=== PATIENT | female | born 2000 | race Caucasian/White ===

== ENCOUNTER 2022-01-14 19:03 | Emergency (ER) | payer SELFPAY ==
--- NOTE | ~2022-01-14 | XR_ITS ---
EXAMINATION: XR foot RT min 3V, XR foot LT min 3V DATE: 01/14/2022 20:08 INDICATION: Pain at the arches of the bilateral feet TECHNIQUE: 1. Dorsoplantar, two oblique and lateral views of the left foot were obtained. 2. Dorsoplantar, two oblique and lateral views of the right foot were obtained. COMPARISON: None. FINDINGS: Normal alignment at both feet. No fractures. Joint spaces are normal throughout both feet. No erosion s or periosteal reaction. Soft tissues are unremarkable. IMPRESSION: 1. Negative bilateral foot radiographs. Reviewed, dictated and finalized at location A. IMPRESSION: 1. Negative bilateral foot radiographs.
[2022-01-14 19:15] VITALS: BP 122/76; PULSE 101; RESP 18; TEMP 36.6; O2SAT 100
--- NOTE | 2022-01-14 19:17 | ED.LOWEXIN ---
HPI - Extremity Injury (Lower) General Chief Complaint: Extremity Problem,Nontraumatic Stated Complaint: pain in feet Time Seen by Provider: 01/14/22 19:17 Source: patient Mode of arrival: wheelchair History of Present Illness HPI Narrative: 21-year-old female with Asthma presents to the ER with bilateral foot pain. The patient has been standing for prolonged periods of time washing dishes. No history of trauma. bilateral breast cutaneous scars Onset (ago): week(s) ( For past 2 weeks) Relieving factors: immobilization Exacerbating factors: weight bearing Other symptoms: none Related Data Allergies Allergy/AdvReac Type Severity Reaction Status Date / Time No Known Allergies Allergy Unverified 08/09/18 19:40 Review of Systems Review of Systems: All systems reviewed & are unremarkable except as noted in HPI and below Constitutional: Constitutional: Reports as per HPI and Reports no additional constitutional complaints Eyes: Eyes: Reports as per HPI and Reports no additional eye complaints ENT: Reports system reviewed and no additional complaints, except as documented and Reports as per HPI Cardiovascular: Cardiovascular: Reports as per HPI and Reports no additional cardiovascular complaints Respiratory: Respiratory: Reports as per HPI, Reports no additional respiratory complaints, Reports cough and Reports wheezing Gastrointestinal: Gastrointestinal: Reports as per HPI and Reports no additional gastrointestinal complaints Genitourinary: Genitourinary: Reports no additional female genitourinary complaints and Reports as per HPI Musculoskeletal: Musculoskeletal: Reports no additional musculoskeletal complaints and Reports as per HPI Comments: bilateral foot pain Integumentary/Breasts: Skin/Breast: Reports system reviewed and no additional complaints, except as docu Neurologic: Reports system reviewed and no additional complaints, except as documented and Reports as per HPI Psychiatric: Psychiatric: Reports no additional psychiatric complaints and Reports as per HPI Endocrine: Endocrine: Reports no additional endocrine complaints and Reports as per HPI Hematologic/Lymphatic: Hematologic/Lymphatic: Reports no additional hematologic/lymphatic complaints and Reports as per HPI Allergic/Immunologic: Allergic/Immunologic: Reports no additional allergic/immunologic complaints and Reports as per HPI Exam Const: General: healthy appearing and no acute distress Nutritional Appearance: well nourished Orientation/consciousness: patient oriented x3 Limitations: no limitations HENMT: Head: normal to inspection Ears: external ears normal General nose exam: Normal external nose present Face and sinus: normal facial exam Mouth: Yes Normal oral and palatal mucosa present Throat: posterior oropharynx normal Eyes: Conjunctivae: conjunctivae normal Pupils: Equal, round and reactive pupils present EOM: EOMs intact bilaterally Direct Ophthalmoscopy: no photophobia Neck: Neck: normal visual inspection, no lymphadenopathy and no meningeal signs Chest: Chest palpation & inspection: normal inspection of the chest Resp: Effort & Inspection: normal respiratory effort Auscultation: rhonchi Cardio: Rate: regular rate Rhythm: regular rhythm GI: GI Palp: Yes Soft to palpation : General: Yes bladder normal to palpation and Yes no CVA tenderness Back/Spine/Pelvis: Back: no CVA tenderness Skin: General skin exam: normal color Rashes: no rashes Wounds: no wounds Other: the skin on the press has 0.5-1 cm healed scars. She has intermittent abscesses which drained pus subsequently form scars Neuro: General: patient oriented x3 Cranial nerves: Yes Nystagmus not present Speech: normal speech Gait exam (Neuro): Normal gait present Extrem: General: normal to inspection Psych: Mental Status: mental status grossly normal Affect: normal affect Attitude: cooperative Course Course Emergency Course: foot pain joseas
[2022-01-14 19:46] LABS: Pregnancy On Board Control Positive; Urine Pregnancy Test Negative
[2022-01-14 20:40] VITALS: BP 124/70; PULSE 91; RESP 18; O2SAT 99
== END 2022-01-14 20:42 | disposition home or self-care (01) ==
PROVIDERS: Emergency Provider Internal Medicine Critical Care Medicine
DX: M79.672 Pain in left foot (principal); M79.671 Pain in right foot; L02.91 Cutaneous abscess, unspecified
CPT/HCPCS: 73630; 81025; 99284

== ENCOUNTER 2022-11-17 19:35 | Emergency (ER) | payer SELFPAY ==
[2022-11-17 19:39] VITALS: BP 140/80; PULSE 88; RESP 20; TEMP 36.7; O2SAT 100
--- NOTE | 2022-11-17 19:48 | ED.GENADULT ---
HPI - General Adult General Chief complaint: Unspecified Stated complaint: L Rib pain History of Present Illness HPI narrative: The patient is a 22-year-old with history of asthma and seasonal allergies. She smokes marijuana but does not use nicotine. This evening, at approximately 6:00 p.m., she had left posterior mid back pain, with tenderness to touch in that area. No falls or twisting or lifting of heavy objects. Event took place at work. Worse pain by palpation of that area. The pain is intermittent, and is not radiating elsewhere, currently 1/10 (minimal). She is having occasional shortness of breath and she has not taken her inhaler with her to come to the emergency room. No chest pain. No abdominal pain. No nausea or vomiting. No fevers or chills or diaphoresis. No URI or UTI symptoms. No hematuria. No flank pain. No history of kidney stones. The patient also has a small 1 cm lesion on her left breast that is tender to touch, for the last several days. No fevers. No drainage from that area. Related Data Allergies Allergy/AdvReac Type Severity Reaction Status Date / Time No Known Allergies Allergy Unverified 08/09/18 19:40 Review of Systems Review of Systems: All systems reviewed & are unremarkable except as noted in HPI and below Constitutional: Constitutional: Denies chills, Denies excessive sweating, Denies fatigue, Denies fever(s), Denies headache(s) and Denies weakness Eyes: Eyes: Denies change in vision and Denies photophobia ENT: Denies dysphagia, Denies dizziness, Denies headache(s), Denies lip swelling, Denies nasal congestion, Denies sore throat and Denies tongue swelling Cardiovascular: Cardiovascular: Denies chest pain, Denies syncope, Denies rapid heart rate and Denies dyspnea Respiratory: Respiratory: Denies cough, Reports dyspnea and Denies wheezing Gastrointestinal: Gastrointestinal: Denies abdominal pain, Denies constipation, Denies dysphagia, Denies diarrhea, Denies nausea and Denies vomiting Genitourinary: Genitourinary: Denies hematuria, Denies urinary frequency, Denies dysuria and Denies urinary urgency Musculoskeletal: Musculoskeletal: Reports back pain, Denies myalgias, Denies arthralgias, Denies joint swelling and Denies numbness Integumentary/Breasts: Skin/Breast: Denies pruritus, Reports erythema and Reports rash ( At left breast) Neurologic: Denies confusion, Denies dizziness, Denies syncope, Denies headache(s), Denies focal weakness, Denies numbness and Denies weakness Psychiatric: Psychiatric: Denies anxiety and Denies confusion Endocrine: Endocrine: Denies excessive sweating and Denies fatigue Hematologic/Lymphatic: Hematologic/Lymphatic: Denies easy bleeding and Denies easy bruising Allergic/Immunologic: Allergic/Immunologic: Denies lip swelling, Denies tongue swelling and Denies wheezing Exam Const: General: healthy appearing, no acute distress, alert and well nourished Nutritional Appearance: well nourished Orientation/consciousness: patient oriented x3 Limitations: no limitations HENMT: Head: normal to inspection Ears: external ears normal Face/Nose/Sinus: normal facial exam Face and sinus: normal facial exam Mouth: Yes moist mucous membranes Throat: posterior oropharynx normal Eyes: Conjunctivae: conjunctivae normal Pupils: Equal, round and reactive pupils present EOM: EOMs intact bilaterally Neck: Neck: normal visual inspection and no meningeal signs Chest: Chest palpation & inspection: normal inspection of the chest and no tenderness Resp: Effort & Inspection: normal respiratory effort and not labored Auscultation: clear to auscultation bilaterally, no crackles, no rhonchi and wheezes scattered wheezes (very occasional wheezes.) Cardio: Rate: regular rate Rhythm: regular rhythm Heart sounds: no murmurs GI: Inspection: non-distended GI Palp: Yes Soft to palpation, No Tenderness to palpation present (GI), No Guarding due to palpation present (GI) an
[2022-11-17 20:21] LABS: Appearance Urine Clear (Clear); Bilirubin Urine Negative (Negative); Blood Urine 2+ (Negative); Color Urine Light Yellow (Yellow); Glucose Urine UA Negative (Negative); Ketones Urine Negative (Negative); Leukocyte Esterase Ur Negative LEU/UL (Negative); Nitrate Urine Negative (Negative); Protein Urine Negative (Negative); Specific Grav Ur >= 1.030 (1.010-1.020); Urobilinogen Urine 0.2 mg/dL (0.2-1.0)
[2022-11-17 20:25] LABS: Pregnancy On Board Control Positive; Urine Pregnancy Test Negative
[2022-11-17] MEDS: ACETAMINOPHEN 500 MG TABLET 1000 MG PO (20:25)
[2022-11-17] MEDS: IBUPROFEN 400 MG TABLET 800 MG PO (20:25)
[2022-11-17 20:26] LABS: Add Urine Microscopic? YES; Bacteria Urine 1+ /hpf; Mucus Urine Few /lpf; Squamous Epithelial Cell Urine Few /hpf (Few); WBC Urine None seen /hpf (0-3)
[2022-11-17] MEDS: CYCLOBENZAPRINE HCL 10 MG TABLET PO (20:26)
[2022-11-17] MEDS: IPRATROPIUM 0.5 MG/ALBUTEROL SULFATE 2.5 MG AMPUL.NEB 3 ML INHALATION (20:30)
[2022-11-17] MEDS: SULFAMETHOXAZOLE/TRIMETHOPRIM 800/160 MG DS TABLET 1 TAB PO (20:39)
[2022-11-17 21:09] VITALS: BP 121/84; PULSE 88; RESP 20; TEMP 36.7; O2SAT 100
== END 2022-11-17 21:11 | disposition home or self-care (01) ==
LOC: CHSED 20:58
PROVIDERS: Emergency Provider Emergency Medicine
DX: S29.012A Strain of muscle and tendon of back wall of thorax, initial encounter (principal); J45.909 Unspecified asthma, uncomplicated; L03.312 Cellulitis of back [any part except buttock and flank]; X58.XXXA Exposure to other specified factors, initial encounter
CPT/HCPCS: 81001; 81025; 99283; A9270

== ENCOUNTER 2023-01-05 22:55 | Emergency (ER) | payer SELFPAY ==
--- NOTE | 2023-01-05 22:57 | ED.LOWEXIN ---
HPI - Extremity Injury (Lower) General Chief Complaint: Extremity Injury, Lower Stated Complaint: R foot pain Time Seen by Provider: 01/05/23 22:57 Source: patient Mode of arrival: ambulatory Limitations: no limitations History of Present Illness HPI Narrative: 22-year-old female presents to the ER a 2 day history of -- right foot /sole pain which has been increasing progressively. She is unable to bear weight. No history of trauma she has a prior history of bilateral foot pain. She stands for prolonged periods of time at her job. Onset (ago): day(s) (for last 2 days.) Injury: Right: foot Related Data Home Medications Medication Instructions Recorded Confirmed No Home Medications 01/05/23 01/05/23 Allergies Allergy/AdvReac Type Severity Reaction Status Date / Time No Known Allergies Allergy Unverified 01/05/23 23:37 Review of Systems Review of Systems: All systems reviewed & are unremarkable except as noted in HPI and below Constitutional: Constitutional: Reports as per HPI and Reports no additional constitutional complaints Eyes: Eyes: Reports as per HPI and Reports no additional eye complaints ENT: Reports system reviewed and no additional complaints, except as documented and Reports as per HPI Cardiovascular: Cardiovascular: Reports as per HPI and Reports no additional cardiovascular complaints Respiratory: Respiratory: Reports as per HPI and Reports no additional respiratory complaints Gastrointestinal: Gastrointestinal: Reports as per HPI and Reports no additional gastrointestinal complaints Genitourinary: Genitourinary: Reports no additional female genitourinary complaints Musculoskeletal: Comments: Pain on the sole of her right foot. Integumentary/Breasts: Skin/Breast: Reports system reviewed and no additional complaints, except as docu and Reports as per HPI Neurologic: Reports system reviewed and no additional complaints, except as documented and Reports as per HPI Psychiatric: Psychiatric: Reports no additional psychiatric complaints and Reports as per HPI Endocrine: Endocrine: Reports no additional endocrine complaints and Reports as per HPI Hematologic/Lymphatic: Hematologic/Lymphatic: Reports no additional hematologic/lymphatic complaints and Reports as per HPI Allergic/Immunologic: Allergic/Immunologic: Reports no additional allergic/immunologic complaints and Reports as per HPI Exam Const: General: no acute distress Orientation/consciousness: patient oriented x3 Limitations: no limitations HENMT: Head: normal to inspection Ears: external ears normal Face/Nose/Sinus: Normal external nose present Face and sinus: normal facial exam Mouth: Yes Normal oral and palatal mucosa present Throat: posterior oropharynx normal Eyes: Conjunctivae: conjunctivae normal Pupils: Equal, round and reactive pupils present EOM: EOMs intact bilaterally Direct Ophthalmoscopy: no photophobia Neck: Neck: normal visual inspection and no lymphadenopathy Chest: Chest palpation & inspection: normal inspection of the chest Resp: Effort & Inspection: normal respiratory effort Auscultation: clear to auscultation bilaterally Cardio: Rate: regular rate Rhythm: regular rhythm GI: GI Palp: Yes Soft to palpation Auscultation: normal bowel sounds Back/Spine/Pelvis: Back: no CVA tenderness Skin: General skin exam: normal color Rashes: no rashes Wounds: no wounds Neuro: General: patient oriented x3, moves all extremities, no meningeal signs, no focal motor deficits and CN's II-XI intact bilaterally Speech: normal speech Extrem: General: normal to inspection Other: Right foot has tenderness over the plantar fascia. Psych: Mental Status: mental status grossly normal Affect: normal affect Attitude: cooperative Course Course Emergency Course: Right foot pain-- will get an x-ray to rule out a fracture /stress fracture chest x-ray did not show any fractures or dislocation.
[2023-01-05 23:04] VITALS: BP 120/74; PULSE 102; RESP 20; TEMP 36.9; O2SAT 98
--- NOTE | 2023-01-05 23:16 | PC.NURSE ---
Urine specimen taken to lab and given to bottle label inspector at this time.
[2023-01-05 23:19] LABS: Pregnancy On Board Control Positive; Urine Pregnancy Test Negative
== END 2023-01-05 23:57 | disposition home or self-care (01) ==
PROVIDERS: Emergency Provider Internal Medicine Critical Care Medicine
DX: M72.2 Plantar fascial fibromatosis (principal)
CPT/HCPCS: 73630; 81025; 99283

== ENCOUNTER 2023-03-30 12:27 | Emergency (ER) | payer SELFPAY ==
--- NOTE | ~2023-03-30 | XR_ITS ---
XR chest 1V portable DATE: 03/30/2023 13:34 INDICATION: Shortness of breath TECHNIQUE: Portable upright AP chest on 03/30/2023 1334 hours COMPARISON: None FINDINGS: Normal heart size. No hilar or mediastinal enlargement. No pulmonary infiltrate or consolidation, pleural effusion or pulmonary vascular congestion or pneumo thorax is detected. IMPRESSION: No active cardiopulmonary disease Reviewed, dictated and finalized at location B.
[2023-03-30 12:36] VITALS: BP 150/101; PULSE 90; RESP 20; TEMP 36.7; O2SAT 97
--- NOTE | 2023-03-30 12:39 | ED.SOB ---
HPI - SOB/Dyspnea General Chief Complaint: Shortness of Breath/Dyspnea Stated Complaint: shortness of breath and cough Time Seen by Provider: 03/30/23 12:39 Source: patient Mode of arrival: ambulatory Limitations: no limitations History of Present Illness HPI Narrative: 22-year-old female with asthma presents to the ER with a 2 day history of -- nonproductive cough -- shortness of breath with wheezing no fever or chills. No upper respiratory symptoms. Patient has been using Primatene mist without significant improvement. MD elicited complaint: shortness of breath, cough and asthma attack Pertinent past history: asthma Onset (ago): day(s) ( Symptoms started 2 days ago.) Severity: severe Exacerbating factors: exertion and coughing Relieving factors: nothing Known history of: asthma Associated symptoms: denies other symptoms Related Data Home oxygen amount: none Home Medications Medication Instructions Recorded Confirmed epinephrine 0.125 mg/actuation 1 puff inhalation Q4H PRN 03/30/23 03/30/23 aerosol inhaler (Primatene Mist) Shortness Of Breath Or Wheezing Allergies Allergy/AdvReac Type Severity Reaction Status Date / Time No Known Allergies Allergy Unverified 03/30/23 12:51 Review of Systems Review of Systems: All systems reviewed & are unremarkable except as noted in HPI and below Constitutional: Constitutional: Reports as per HPI and Reports no additional constitutional complaints Eyes: Eyes: Reports as per HPI and Reports no additional eye complaints ENT: Reports system reviewed and no additional complaints, except as documented and Reports as per HPI Cardiovascular: Cardiovascular: Reports as per HPI and Reports no additional cardiovascular complaints Respiratory: Respiratory: Reports as per HPI, Reports cough, Reports dyspnea and Reports wheezing Gastrointestinal: Gastrointestinal: Reports as per HPI and Reports no additional gastrointestinal complaints Genitourinary: Genitourinary: Reports no additional female genitourinary complaints and Reports as per HPI Musculoskeletal: Musculoskeletal: Reports no additional musculoskeletal complaints and Reports as per HPI Integumentary/Breasts: Skin/Breast: Reports system reviewed and no additional complaints, except as docu and Reports as per HPI Neurologic: Reports system reviewed and no additional complaints, except as documented and Reports as per HPI Psychiatric: Psychiatric: Reports no additional psychiatric complaints and Reports as per HPI Endocrine: Endocrine: Reports no additional endocrine complaints and Reports as per HPI Hematologic/Lymphatic: Hematologic/Lymphatic: Reports no additional hematologic/lymphatic complaints and Reports as per HPI Allergic/Immunologic: Allergic/Immunologic: Reports no additional allergic/immunologic complaints and Reports as per HPI Exam Const: General: ill appearing Nutritional Appearance: obese Orientation/consciousness: patient oriented x3 Limitations: no limitations HENMT: Head: normal to inspection Ears: external ears normal Face/Nose/Sinus: Normal external nose present Face and sinus: normal facial exam Mouth: Yes Normal oral and palatal mucosa present Throat: posterior oropharynx normal Eyes: Conjunctivae: conjunctivae normal Pupils: Equal, round and reactive pupils present EOM: EOMs intact bilaterally Direct Ophthalmoscopy: no photophobia Neck: Neck: normal visual inspection, no lymphadenopathy and no meningeal signs Chest: Chest palpation & inspection: normal inspection of the chest Resp: Effort & Inspection: labored Auscultation: rhonchi and wheezes Cardio: Rate: regular rate Rhythm: regular rhythm GI: GI Palp: Yes Soft to palpation Auscultation: normal bowel sounds : General: Yes no CVA tenderness Back/Spine/Pelvis: Back: no CVA tenderness Skin: General skin exam: normal color Rashes: no rashes Wounds: no wounds Neuro: General: patient oriented x3, moves all extremi
[2023-03-30 12:46] VITALS: O2SAT 97
[2023-03-30 13:00] VITALS: PULSE 82; RESP 16; O2SAT 96
[2023-03-30] MEDS: IPRATROPIUM 0.5 MG/ALBUTEROL SULFATE 2.5 MG AMPUL.NEB 3 ML INHALATION (13:02)
[2023-03-30 13:09] VITALS: PULSE 86; RESP 16; O2SAT 100
[2023-03-30] MEDS: methylPREDNISolone SOD SUCC 125 MG VIAL IM (13:25)
[2023-03-30 14:31] VITALS: BP 127/86; PULSE 87; RESP 18; TEMP 36.3; O2SAT 96
--- NOTE | 2023-03-30 14:49 | PC.NURSE ---
On 03/30/23, the student, [ANGEL COMBS ], provided care and completed [facility] documentation on this patient. I have reviewed the student's documentation and agree with the findings.
== END 2023-03-30 14:50 | disposition home or self-care (01) ==
PROVIDERS: Emergency Provider Internal Medicine Critical Care Medicine
DX: J45.51 Severe persistent asthma with (acute) exacerbation (principal)
CPT/HCPCS: 71045; 94640; 96372; 99283; J2930

== ENCOUNTER 2023-04-03 01:52 | Emergency (ER) | payer SELFPAY ==
--- NOTE | ~2023-04-03 | XR_ITS ---
EXAMINATION: XR chest 1V portable 04/03/2023 02:19 INDICATION: Dyspnea. History of asthma. PROCEDURE: AP portable chest COMPARISON: 03/30/2023 FINDINGS: The lungs are clear. The cardiomediastinal silhouette is within normal limits. There are no pleural effusions. There is no pneumothorax suspected. IMPRESSION: 1: NO ACUTE CARDIOPULMONARY DISEASE. Reviewed, dictated and finalized at location A.
[2023-04-03 01:54] VITALS: BP 117/95; PULSE 137; RESP 24; TEMP 36.8; O2SAT 96
--- NOTE | 2023-04-03 02:16 | ED.GENADULT ---
HPI - General Adult General Chief complaint: Asthma Stated complaint: Asthma Time Seen by Provider: 04/03/23 02:08 History of Present Illness HPI narrative: Patient [id number] female who presents the emergency department with chief complaint of asthma exacerbation. The patient reports that she was seen on the and treated for asthma the patient reports that she was recently seen and was started on a nebulizer and inhaler patient reports that she did not take the prednisone as she did not feel as though it was working. Related Data Home Medications Medication Instructions Recorded Confirmed epinephrine 0.125 mg/actuation 1 puff inhalation Q4H PRN 03/30/23 03/30/23 aerosol inhaler (Primatene Mist) Shortness Of Breath Or Wheezing Allergies Allergy/AdvReac Type Severity Reaction Status Date / Time No Known Allergies Allergy Verified 04/03/23 01:57 Review of Systems Review of Systems: A 10 system review of systems was completed on the patient and is negative except for what is stated in the HPI. Nursing and ancillary documentation was reviewed. Exam Narrative: GENERAL: Well-appearing, well-nourished, and in no acute distress. HEAD: Normocephalic, atraumatic. EYES: PERRLA and EOMI. ENT: Nares clear, no rhinorrhea or epistaxis. Mucous membranes moist. NECK: Supple. CHEST: Scattered wheezes to auscultation. No respiratory distress. HEART: Regular rate and rhythm. No murmur heard. Normal peripheral pulses. ABDOMEN: Soft, nontender, nondistended, normal active bowel sounds. EXTREMITIES: Normal range of motion. No edema. SKIN: Warm, dry, no rash. NEURO: No focal deficits. Alert and oriented x3. PSYCH: Normal mood and affect. Course Vital Signs Vital signs: Vital Signs Temperature 36.8 C 04/03/23 01:54 Pulse Rate 137 H 04/03/23 01:54 Respiratory Rate 24 H 04/03/23 01:54 Blood Pressure 117/95 H 04/03/23 01:54 Pulse Oximetry 96 04/03/23 01:54 Oxygen Delivery Room Air 04/03/23 01:54 Temperature 36.8 C 04/03/23 01:54 Pulse Rate 124 H 04/03/23 02:37 Respiratory Rate 18 04/03/23 02:37 Blood Pressure 117/95 H 04/03/23 01:54 Pulse Oximetry 96 04/03/23 01:54 Oxygen Delivery Room Air 04/03/23 01:54 Medical Decision Making MDM Narrative Medical decision making narrative: Differential diagnosis includes asthma attack, pneumonia, pneumothorax Patient received nebulizer treatment in the emergency department and received steroids. The patient is feeling better at this time Vital Signs Vital Signs: Vital Signs Temperature 36.8 C 04/03/23 01:54 Pulse Rate 137 H 04/03/23 01:54 Respiratory Rate 24 H 04/03/23 01:54 Blood Pressure 117/95 H 04/03/23 01:54 Pulse Oximetry 96 04/03/23 01:54 Oxygen Delivery Room Air 04/03/23 01:54 Temperature 36.8 C 04/03/23 01:54 Pulse Rate 124 H 04/03/23 02:37 Respiratory Rate 18 04/03/23 02:37 Blood Pressure 117/95 H 04/03/23 01:54 Pulse Oximetry 96 04/03/23 01:54 Oxygen Delivery Room Air 04/03/23 01:54 Discharge Plan Discharge Clinical Impression: Asthma with acute exacerbation Patient Disposition: Home, Self-Care Condition: Stable Instructions: Antibiotic Form, Asthma (ED) Prescriptions: New albuterol sulfate 90 mcg/actuation HFA aerosol inhaler 2 puff inhalation QID PRN (Reason: shortness of breath or wheezing) Qty: 8.5 0RF prednisone 20 mg tablet 40 mg PO DAILY 5 Days Qty: 10 0RF benzonatate 200 mg capsule 200 mg PO TID PRN (Reason: cough) Qty: 21 0RF No Action Primatene Mist 0.125 mg/actuation Hfa Aerosol Inhaler 1 puff INHALATION Q4H PRN (Reason: Shortness Of Breath Or Wheezing) Rx Instructions: may repeat once after 1 minute; do not exceed 8 inhalations per 24 hrs prednisone 20 mg tablet 20 mg PO BID Qty: 10 0RF fluticasone propion-salmeterol [AirDuo RespiClick] 55-14 mcg/actuation aerosol powdr breath activated
[2023-04-03] MEDS: ALBUTEROL SULFATE NEB 2.5 MG/3 ML INH INHALATION (02:26)
[2023-04-03 02:27] VITALS: PULSE 120; RESP 18
[2023-04-03] MEDS: IPRATROPIUM BR 0.02% INH SOLN 0.5 MG/2.5 ML VIAL INHALATION (02:27)
[2023-04-03] MEDS: methylPREDNISolone SOD SUCC 125 MG VIAL IV PUSH (02:29)
[2023-04-03 02:37] VITALS: PULSE 124; RESP 18
[2023-04-03 03:33] VITALS: PULSE 108; O2SAT 98
== END 2023-04-03 03:34 | disposition home or self-care (01) ==
PROVIDERS: Emergency Provider Emergency Medicine
DX: J45.901 Unspecified asthma with (acute) exacerbation (principal)
CPT/HCPCS: 71045; 94640; 96374; 99284; J2930

== ENCOUNTER 2024-10-29 20:39 | Emergency (ER) | payer SELFPAY ==
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
--- OUTSIDE RECORDS SUMMARY | 2024-10-29 20:41 | XMS_ITS | Continuity of Care Document ---
Author Organization [facility] Address [address] [place] [phone] Phone Care Team Providers Care Neon Sign Worker Name Role Phone Unavailable Unavailable Unavailable Allergies, Adverse Reactions, Alerts Substance Reaction Status Criticality No Known Allergies Active No Inform ation Medications Medication Instructions Dosage Effective Dates (start - stop) Status Comments ADVAIR DISKUS (unknown strength) Not Available - Active SINGULAIR (unknown strength) Not Available - Active albuterol sulfate HFA 90 mcg/actuation aerosol inhaler - Active Procedures Procedure Date Comprehensive Eye Exam,New 4 Advance Directives Directive Yes / No Effective Date File Name No Information Encounters Encounter Description Practice Location Reason(s) For Visit Diagnoses Date Provider Providers Copied on Encounter [facility], [facility] [place], [place], [id number], [place] tel:[phone] Center [facility] decreased vision (chief complaint) Hyperopia No Information Family History Family Member Type Diagnosis Age At Onset No Information Payers Payer name Insurance type Covered republican ID Authoriza tion(s) No Information Social History Type Description Quantity Date Captured Comments Alcohol Use Details No Caffeine Use Details Unknown Tobacco Use Status No Information Smoking Status No Information Sex Female Chief Complaint And Reason For Visit From encounter dated '01/14/2014 10:00'. decreased vision (chief complaint) Reason For Referral Reason For Referral No Information History Of Present Illness Encounter Date Complaint History Of Prese nt Illness No Information Functional Status Date Functional Assessmen t No Information Instructions Date Instruction Additional Infor mation - Discussed diagnosi s in detail with patient. Discussed treatment options with patient. New glasses Rx was not given today. Will continue to observe condition and or symptoms. Call if VA worsens. Please perform stereo testing and color testing at next exam. Related to Hyperopia - Return in 1 year w tomer Mistry for Complete Exam. Related to Hyperopia Assessments Type Assessment Date assessment Hyperopia Patient Care Teams Name Effective Dates (start - stop) Status Members No Information
[2024-10-29 20:51] VITALS: BP 138/78; PULSE 80; RESP 20; TEMP 36.3; O2SAT 98
[2024-10-29 21:43] VITALS: O2SAT 97
[2024-10-29 21:46] VITALS: BP 108/93; PULSE 88; RESP 15; O2SAT 98
--- NOTE | 2024-10-29 21:48 | ECG_ITS ---
Test Date: 2024-10-29 22:21:23 Measurements Intervals [place] Rate: 90 P: 41 WV: 171 QRS: 48 QRSD: 88 T: 5 QT: 355 QTc: 436 Interpretive Statements SINUS RHYTHM LOW QRS VOLTAGE IN PRECORDIAL LEADS [QRS DEFLECTION < 1.0 mV IN CHEST LEADS] No previous ECG available for comparison Electronically Signed On 10-30-2024 13:32:03 CDT by Stacie Milner M.D.
[2024-10-29] MEDS: predniSONE 20 MG TABLET 40 MG PO (22:20)
--- OUTSIDE RECORDS SUMMARY | 2024-10-29 22:32 | XMS_ITS | Continuity of Care Document ---
Author Organization [facility] Address [address] [place] [phone] Phone Care Team Providers Care Dealmaker Name Role Phone Unavailable Unavailable Unavailable Allergies, [...] Date Provider Providers Copied on Encounter [facility], [facility] [place], [place], [id number], [place] tel:[phone] [facility] decreased vision (chief complaint) Hyperopia No Information Family History Family Member Type Diagnosis Age At Onset No Information Payers Payer name Insurance type Covered green party ID Authoriza tion(s) No Information Social History [...] - Return in 1 year w tomer Msitry for Complete Exam. Related to Hyperopia Assessments Type Assessment Date assessment Hyperopia Patient Care Teams Name Effective Dates (start - stop) Status Members No Information
[2024-10-29] MEDS: IPRATROPIUM 0.5 MG/ALBUTEROL SULFATE 2.5 MG AMPUL.NEB 3 ML 10 ML INHALATION (22:37)
[2024-10-29 22:47] VITALS: PULSE 80; RESP 18
[2024-10-29 23:22] VITALS: BP 107/80; PULSE 97; RESP 18; O2SAT 98
--- NOTE | 2024-10-30 01:44 | ED.SOB ---
HPI - SOB/Dyspnea General Chief Complaint: Shortness of Breath/Dyspnea Stated Complaint: Shortness of breath-Asthma Time Seen by Provider: 10/29/24 21:49 History of Present Illness HPI Narrative: Patient with history of asthma presents here with shortness of breath starting the last few days, has been using all of her albuterol inhaler and now is out. Related Data Home Medications Medication Instructions Recorded Confirmed Last Taken Type epinephrine 0.125 mg/actuation 1 puff inhalation Q4H PRN 03/30/23 03/30/23 03/30/23 History aerosol inhaler (Primatene Mist) Shortness Of Breath Or Wheezing Allergies Allergy/AdvReac Type Severity Reaction Status Date / Time No Known Allergies Allergy Verified 10/29/24 21:48 Review of Systems Review of Systems: All systems reviewed & are unremarkable except as noted in HPI and below Exam Narrative: EXAMINATION OF ORGAN SYSTEMS/BODY AREAS: Constitutional: Vital signs per nursing GENERAL:[No acute distress, non-toxic appearing.] HEAD: Normal with no signs of head trauma. EYES: EOMI, conjunctiva normal ENT: Hearing grossly intact LUNGS: Wheezing all lung mae with diminished breath sounds HEART: [Regular rate and rhythm] ABD: [Soft], [nontender to palpation] EXT: Normal range of motion SKIN: [No rashes or lesions.] NEURO: [Alert and oriented x 3. No gross focal sensory or strength deficits.] PSYCH: Normal affect Course Vital Signs Vital signs: Vital Signs Temperature 97.3 F L 10/29/24 20:51 Pulse Rate 80 10/29/24 20:51 Respiratory Rate 20 10/29/24 20:51 Blood Pressure 138/78 10/29/24 20:51 Pulse Oximetry 98 10/29/24 20:51 Oxygen Delivery Room Air 10/29/24 20:51 Temperature 97.3 F L 10/29/24 20:51 Pulse Rate 97 10/29/24 23:22 Respiratory Rate 18 10/29/24 23:22 Blood Pressure 107/80 10/29/24 23:22 Pulse Oximetry 98 10/29/24 23:22 Oxygen Delivery Room Air 10/29/24 21:43 MDM - SOB/Dyspnea MDM Narrative Medical decision making narrative: ED COURSE AND MEDICAL DECISION MAKINF with acute dyspnea and wheezing likely due to acute asthma exacerbation based on history and exam. Patient is hemodynamically stable. Nebulizer treatments are started and steroids given orally. Chest x-ray on my independent interpretation without any consolidations or pneumothorax. EKG on my independent interpretation shows normal sinus rhythm rate 90, normal IL, QRS, QTC, no significant ST elevations depressions signs of acute ischemia or arrhythmia. Patient monitored in the ED for a couple of hours and on reevaluation is feeling significantly better. No respiratory distress or accessory muscle use. Good air movement bilateral lungs. Prescriptions for [albuterol and steroid course] provided. She is given strict return precautions and patient is discharged in stable/improved condition. Discharge Plan Discharge Clinical Impression: Asthma exacerbation Patient Disposition: Home Condition: Stable Instructions: Asthma (ED) Additional Instructions: Please follow up with your doctor; you can always return for any further issues. Take the medications as prescribed. Patient Language: Vietnamese Prescriptions: New albuterol sulfate 90 mcg/actuation HFA aerosol inhaler 2 puff inhalation QID PRN (Reason: shortness of breath or wheezing) Qty: 8.5 0RF ipratropium-albuterol 0.5 mg-3 mg(2.5 mg base)/3 mL solution for nebulization 3 ml inhalation Q4H PRN (Reason: shortness of breath or wheezing) Qty: 180 0RF prednisone 20 mg tablet 40 mg PO DAILY 4 Days Qty: 8 0RF No Action Primatene Mist 0.125 mg/actuation Hfa Aerosol Inhaler 1 puff INHALATION Q4H PRN (Reason: Shortness Of Breath Or Wheezing) Rx Instructions: may repeat once after 1 minute; do not exceed 8 inhalations per 24 hrs prednisone 20 mg tablet 20 mg PO BID Qty: 10 0RF fluticasone propion-salmeterol [AirDuo RespiClick] 55-14 mcg/actuation aerosol powdr breath activated 1 inh inhalation Q12H Qty: 1 0RF albuterol sulfate 2.5 mg /3 mL (0.083 %) solution for nebulization 2.5 mg inhalation Q4H PRN (Reason: shortness of breath or wheezing) Qty: 180 0RF albuterol sulfate 90 mcg/actuation HFA aerosol inhaler 2 puff inhalation QID PRN (Reason: shortness of breath or wheezing) Qty: 8.5 0RF prednisone 20 mg tablet 40 mg PO DAILY 5 Days Qty: 10 0RF benzonatate 200 mg capsule 200 mg PO TID PRN (Reason: cough) Qty: 21 0RF Follow-up/Referrals: PHYSICIAN,INSURANCE RISK MANAGER [Primary Care Provider] - Stand Alone Forms: Work/School Release IP
== END 2024-10-29 23:23 | disposition home or self-care (01) ==
LOC: ANHED 22:30
PROVIDERS: Emergency Provider Emergency Medicine
DX: J45.901 Unspecified asthma with (acute) exacerbation (principal)
CPT/HCPCS: 71046; 93005; 94640; 99284; J7512

== ENCOUNTER 2024-12-27 17:44 | Emergency (ER) | payer OTHER, SELFPAY ==
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
[2024-12-27 17:45] VITALS: BP 130/102; PULSE 100; RESP 16; TEMP 36.4; O2SAT 100
--- OUTSIDE RECORDS SUMMARY | 2024-12-27 17:47 | XMS_ITS | Continuity of Care Document ---
Author Organization [facility] Address [address] [place] [phone] Phone Care Team Providers Care Mail Inserter Name Role Phone Unavailable Unavailable Unavailable Allergies, [...] Date Provider Providers Copied on Encounter Eye [facility], [facility] [place], [place], [id number], [place] tel:[phone] [facility] Hyperopia No Information Family History Family Member Type Diagnosis Age At Onset No Information Payers Payer name Insurance type Covered libertarian ID Authoriza tion(s) No Information Social History Type Description Quantity Date Captured Comments Alcohol Use Details No Caffeine Use Details Unknown Tobacco Use Status No Information Smoking Status No Information Sex Female Chief Complaint And Reason For Visit No Information Reason For Referral Reason For Referral No [...]
--- NOTE | 2024-12-27 20:13 | PC.NURSE ---
Pt family to intake desk stating pt head wound is actively bleeding. This RN cleaned pt wound with normal saline irrigation and placed new pressure dressing around pt head and bleeding is stopped at this time.
[2024-12-27 21:15] VITALS: BP 127/88; PULSE 84; RESP 16; O2SAT 100
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
--- OUTSIDE RECORDS SUMMARY | 2024-12-27 21:18 | XMS_ITS | Continuity of Care Document ---
Author Organization [facility] Address [address] [place] [phone] Phone Care Team Providers Care Seam Sewer Name Role Phone Unavailable Unavailable Unavailable Allergies, [...] Date Provider Providers Copied on Encounter [facility], [facility] [place], [place], [id number], [place] tel:[phone] [facility] Hyperopia No Information Family History Family Member Type Diagnosis Age At Onset No Information Payers Payer name Insurance type Covered constitution party ID Authoriza tion(s) No Information Social [...]
[2024-12-27] MEDS: LIDO 2%/EPINEPHRINE 1:100,000 20 ML VIAL 10 ML INFILTRATE (21:57)
[2024-12-27] MEDS: HYDROcodone/acetaminophen (*CRX) 5-325 MG TABLET 1 TAB PO (21:58)
[2024-12-27] MEDS: TETANUS,DIPHTHERIA,AC PERTUSSIS ADULT (0.5 ML) BOOSTRIX IM (21:59)
[2024-12-27] MEDS: LIDOCAINE, EPINEPHRINE, TETRACAINE VISCOUS SOLN 3 ML TOPICAL (21:59)
--- NOTE | 2024-12-27 22:14 | PC.NURSE ---
Attempted cleaning Right side of head with peroxide to remove blood/visualize wound-patient tolerated well. Family at bedside
[2024-12-28 01:30] VITALS: BP 125/74; PULSE 65; RESP 18; O2SAT 100
== END 2024-12-28 01:30 | disposition home or self-care (01) ==
PROVIDERS: Emergency Provider Student in an Organized Health Care Education/Training Program
DX: S06.0X0A Concussion without loss of consciousness, initial encounter (principal); S01.01XA Laceration without foreign body of scalp, initial encounter; Z23 Encounter for immunization; J45.909 Unspecified asthma, uncomplicated; V48.5XXA Car driver injured in noncollision transport accident in traffic accident, initial encounter
CPT/HCPCS: 12002; 70450; 71045; 90471; 90715; 99284; A9270; J2004

== ENCOUNTER 2025-01-08 14:08 | Emergency (ER) | payer SELFPAY ==
[2025-01-08 14:09] VITALS: BP 147/92; PULSE 90; RESP 16; TEMP 36.6; O2SAT 98
--- OUTSIDE RECORDS SUMMARY | 2025-01-08 14:19 | XMS_ITS | Continuity of Care Document ---
Author Organization [facility] Address [address] [place] [phone] Phone Care Team Providers Care Truck Engine Technician Name Role Phone Unavailable Unavailable Unavailable Allergies, [...] Date Provider Providers Copied on Encounter [facility], [facility] [place], [place], [id number], [place] tel:[phone] [facility] Hyperopia No Information Family History Family [...]
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
--- OUTSIDE RECORDS SUMMARY | 2025-01-08 14:36 | XMS_ITS | Continuity of Care Document ---
Author Organization [facility] Address [address] [place] [phone] Phone Care Team Providers Care Health Unit Supervisor Name Role Phone Unavailable Unavailable Unavailable Allergies, [...] Date Provider Providers Copied on Encounter [facility], [facility] [place], [place], [id number], [place] tel:[phone] [facility] Hyper[facility] No Information Family History Family [...]
== END 2025-01-08 14:35 | disposition home or self-care (01) ==
LOC: ANHED 14:30
PROVIDERS: Emergency Provider Physician Assistant
DX: Z48.02 Encounter for removal of sutures (principal)
CPT/HCPCS: 15853; 99282

== ENCOUNTER 2025-03-06 10:49 | Emergency (ER) | payer SELFPAY ==
[2025-03-06] VITALS (7 sets, daily range): BP systolic 119–144; BP diastolic 66–89; PULSE 78–120; RESP 16–20; TEMP 37; O2SAT 99–100
--- NOTE | 2025-03-06 11:23 | ED.GENADULT ---
HPI - General Adult General Chief complaint: Asthma Stated complaint: asthma Time Seen by Provider: 03/06/25 10:55 History of Present Illness HPI narrative: Page Ventura is a 24-year-old female who reports having past medical history of asthma and has been out of her albuterol nebulizer treatments and inhaler for about 1 week. She feels like her asthma has been acting up for the past few days. She denies any other URI symptoms states she is on Claritin for allergies. Speaking in clear full sentences satting 100% on room air. Related Data Home Medications ?Medication ?Instructions ?Recorded ?Confirmed ?Last Taken ?Type loratadine 10 mg tablet (Claritin) 10 mg PO DAILY 03/06/25 03/06/25 03/05/25 History Allergies Allergy/AdvReac Type Severity Reaction Status Date / Time No Known Allergies Allergy Verified 03/06/25 11:43 Review of Systems Review of Systems: All systems reviewed & are unremarkable except as noted in HPI and below Exam Narrative: GENERAL: Well-appearing, well-nourished, and in no acute distress. HEAD: Normocephalic, atraumatic. EYES: PERRLA and EOMI. ENT: Nares clear, no rhinorrhea or epistaxis. Mucous membranes moist. Oropharynx without tonsillar hypertrophy exudate or other lesions. NECK: Supple. No adenopathy or masses. No carotid bruits or JVD CHEST: No respiratory distress, diminished lung sounds with this disorder next otorrhea wheezes anterior and posterior mae HEART: Regular rate and rhythm. No murmur heard. Normal peripheral pulses. EXTREMITIES: Normal range of motion. No edema. SKIN: Warm, dry, no rash. NEURO: No focal deficits. Alert and oriented x3. PSYCH: Normal mood and affect. Course Vital Signs Vital signs: Vital Signs Temperature 37.0 C 03/06/25 10:52 Pulse Rate 78 03/06/25 10:52 Respiratory Rate 17 03/06/25 10:52 Blood Pressure 144/88 H 03/06/25 10:52 Pulse Oximetry 99 03/06/25 10:52 Oxygen Delivery Room Air 03/06/25 10:52 Temperature 37.0 C 03/06/25 10:52 Pulse Rate 93 03/06/25 12:47 Respiratory Rate 16 03/06/25 12:47 Blood Pressure 125/66 03/06/25 12:47 Pulse Oximetry 100 03/06/25 12:47 Oxygen Delivery Room Air 03/06/25 11:29 Medical Decision Making [facility] Narrative Medical decision making narrative: 24-year-old female with complaints of asthma exacerbation states she has been out of her albuterol for about a week and feels like her asthma has been acting up for the past few days. She is speaking in full clear sentences satting 100% on room air there is x-ray during inspiratory wheezes throughout Will start an hour long DuoNeb and provide p.o. steroids Patient appears very well Patient re-evaluated finishing her DuoNeb lung sounds have improved and are clear throughout posterior anterior speaking in full sentences without difficulty satting 100%. Patient will be discharged home stable condition will DC with continued prednisone her albuterol nebulizer and albuterol inhaler provide her with an primary care doctor referral and strict return precautions provided. Medical Records Medical records reviewed: Yes I reviewed the external patient's medical records. Vital Signs Vital Signs: Vital Signs Temperature 37.0 C 03/06/25 10:52 Pulse Rate 78 03/06/25 10:52 Respiratory Rate 17 03/06/25 10:52 Blood Pressure 144/88 H 03/06/25 10:52 Pulse Oximetry 99 03/06/25 10:52 Oxygen Delivery Room Air 03/06/25 10:52 Temperature 37.0 C 03/06/25 10:52 Pulse Rate 93 03/06/25 12:47 Respiratory Rate 16 03/06/25 12:47 Blood Pressure 125/66 03/06/25 12:47 Pulse Oximetry 100 03/06/25 12:47 Oxygen Delivery Room Air 03/06/25 11:29 Vitals reviewed by mi Discharge Plan Discharge Clinical Impression: Asthma Qualifiers: Asthma severity: mild Asthma persistence: unspecified Asthma complication type: unspecified Qualified Code(s): J45.909 - Unspecified asthma, uncomplicated Asthma with acute exacerbation Qualifiers: Asthma severity: mild Asthma persistence: intermittent Qualified Code(s): J45.21 - Mild intermittent asthma with (acute) exacerbation Patient Disposition: Home Condition: Stable Instructions: Antibiotic Form Additional Instructions: Continue the steroid pack Tomorrow, you received a dose here. Continue to use your albuterol as ordered Follow up with a PCP in 1 week as we discussed If you should develop any new or worsening symptoms return to the ER. Patient Language: Uz[place] Prescriptions: New albuterol sulfate 2.5 mg/0.5 mL solution for nebulization 2.5 mg inhalation ONCE Qty: 30 2RF prednisone 5 mg tablets,dose pack See Rx Instructions .ROUTE .COMPLEX Qty: 21 0RF Rx Instructions: orally per package directions albuterol sulfate [Ventolin HFA] 90 mcg/actuation HFA aerosol inhaler 2 puff inhalation QID PRN (Reason: shortness of breath or wheezing) Qty: 8.5 1RF No Action loratadine [Claritin] 10 mg tablet 10 mg PO DAILY Follow-up/Referrals: PHYSICIAN,FREELANCE COPYWRITER [Primary Care Provider, Internal Medicine] Alberto De Paz MD [Physician, Family Practice] - 1 Week Time of Disposition: 12:36
[2025-03-06] MEDS: ALBUTEROL SULFATE NEB 2.5 MG/3 ML INH 10 MG INHALATION (11:27)
[2025-03-06] MEDS: IPRATROPIUM BR 0.02% INH SOLN 0.5 MG/2.5 ML VIAL 1 MG INHALATION (11:27)
== END 2025-03-06 12:50 | disposition home or self-care (01) ==
PROVIDERS: Emergency Provider Nurse Practitioner Family
DX: J45.21 Mild intermittent asthma with (acute) exacerbation (principal)
CPT/HCPCS: 94640; 99283; J7512